=== PATIENT | male | born 1980 | race Caucasian/White ===

== ENCOUNTER 2017-10-12 21:44 | Emergency (ER) | payer OTHER ==
[2017-10-12 21:48] VITALS: BP 144/89; PULSE 73; TEMP 99; BMI 22.6
--- NOTE | 2017-10-12 22:24 | PDOC ---
History of Present Illness - General Chief Complaint: Cold Symptoms Stated Complaint: COUGH/COLD Time Seen by Provider: 10/12/17 21:45 - History of Present Illness Initial Comments: This otherwise healthy 37-year-old man presents with a 2 day history of nasal congestion, mild throat discomfort and nonproductive cough. He also has had subjective fever for the last 24 hours. Patient has been taking over-the- counter decongestant/antihistamine combination's without significant relief ( DayQuil/NyQuil). He denies high fever/productive cough/shortness of breath/ wheezing. He has not had gastrointestinal symptoms or rash. He has used over- the-counter oxymetazoline nasal spray with some relief. 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 Patient is a smoker (states he smokes 4-5 cigarettes per day) no other recreational drug use/daily alcohol use. No known ALLERGIES Past History - Past Medical History Allergies/Adverse Reactions: Allergies Allergy/AdvReac Type Severity Reaction Status Date / Time No Known Allergies Allergy Unverified 10/12/17 21:45 Home Medications: Ambulatory Orders Fluticasone Prop 0.05% Nasal [Flonase -] 1 - 2 spray NS BID #1 spray.pump COPD: No Other medical history: DENIES - Suicide/Smoking/Psychosocial Hx Smoking History: Current every day smoker Number of Cigarettes Smoked Daily: 7 Information on smoking cessation initiated: Yes 'Breaking Loose' booklet given: 10/12/17 Review of Systems - Review of Systems Able to Perform ROS?: Yes Comments:: 12 point review of systems is negative except for what is noted in the history of present illness *Physical Exam - Vital Signs Last Vital Signs Temp Pulse Resp BP Pulse Ox 99 F 73 16 144/89 100 10/12/17 21:46 10/12/17 21:46 10/12/17 21:46 10/12/17 21:46 10/12/17 21:46 - Physical Exam Comments: GENERAL: Adult male, alert and oriented 3, in no acute distress. Vital signs as noted HEAD: Normal with no signs of trauma. EYES: PERRLA, EOMI, sclera anicteric, conjunctiva clear. ENT: Ears normal, nares patent, oropharynx mildly erythematous without exudate or masses ; dry mucous membranes. NECK: Normal range of motion, supple ; mildly tender, moderately enlarged anterior cervical lymph nodes : No JVD LUNGS: Breath sounds equal, clear to auscultation bilaterally. No wheezes, and no crackles. HEART:Regular rate and rhythm, normal S1 and S2 without murmur, rub or gallop. ABDOMEN:.normal bowel sounds No guarding,tenderness or rebound.No masses No distention. EXTREMITIES: Normal range of motion, no edema. No clubbing or cyanosis. No erythema, or tenderness. NEUROLOGICAL: Cranial nerves II through XII grossly intact. Normal speech. No focal neurological deficits. MUSCULOSKELETAL: Back non-tender to palpation, no CVA tenderness SKIN: Warm, Dry, normal turgor, no rashes or lesions noted. Progress Note - Progress Note Progress Note: Clinical presentation most consistent with acute viral upper respiratory infection and acute mild bronchitis. Although the patient has had some relief with nasal oxymetazoline, is been cautioned that dependence and rebound can occur with this nasal spray. Flonase twice a day will be prescribed. Also the patient should drink plenty fluids and rest. [id number] medications for decongestion antihistamine can also be used as needed. *DC/Admit/Observation/Transfer Diagnosis at time of Disposition: Acute viral bronchitis, Viral upper respiratory infection - Discharge Dispostion Disposition: HOME Condition at time of disposition: Stable - Prescriptions Prescriptions: Fluticasone Prop 0.05% Nasal [Flonase -] 1 - 2 spray NS BID #1 spray.pump - Referrals - Patient Instructions Printed Discharge Instructions: DI for Viral Upper Respiratory Infection -- Adult Additional Instructions: Rest; drink plenty of fluids Advil cough and cold during the day as needed for symptoms TheraFlu at night as needed for symptoms Flonase spray in each nostril twice a day for the next week Return or see your doctor if you have high fever/severe cough/wheezing - Post Discharge Activity
== END 2017-10-12 22:44 | disposition home or self-care (01) ==
LOC: FER 21:44
DX: J06.9 Acute upper respiratory infection, unspecified (principal); J20.8 Acute bronchitis due to other specified organisms; B97.89 Other viral agents as the cause of diseases classified elsewhere; F17.210 Nicotine dependence, cigarettes, uncomplicated
CPT/HCPCS: 99282-25

== ENCOUNTER 2019-02-19 01:23 | Emergency (ER) | payer OTHER ==
[2019-02-19 02:20] VITALS: BP 153/98; PULSE 79; TEMP 97.9; BMI 26.2
--- NOTE | 2019-02-19 02:22 | PDOC ---
History of Present Illness - General Chief Complaint: Edema Stated Complaint: SWELLING TO FINGERS Time Seen by Provider: 02/19/19 02:15 History Source: Patient - History of Present Illness Initial Comments: 02/19/19 02:19 38 years old male c/o left 3rd digit swelling at the finger tip and pain. patientis noted to have swelling at the nail bed Past History - Past Medical History Allergies/Adverse Reactions: Allergies Allergy/AdvReac Type Severity Reaction Status Date / Time No Known Allergies Allergy Verified 02/19/19 02:20 Home Medications: Ambulatory Orders Fluticasone Prop 0.05% Nasal [Flonase -] 1 - 2 spray NS BID #1 spray.pump Cephalexin Monohydrate [Keflex -] 250 mg PO Q6H #28 capsule 02/19/19 COPD: No - Suicide/Smoking/Psychosocial Hx Smoking History: Current every day smoker Number of Cigarettes Smoked Daily: 7 'Breaking Loose' booklet given: 10/12/17 Review of Systems - Review of Systems Able to Perform ROS?: Yes Is the patient limited Tunisian proficient: No Constitutional: No: Symptoms Reported, See HPI, Chills, Diaphoresis, Fever, Loss of Appetite, Malaise, Night Sweats, Weakness, Weight Stable, Unintentional Wgt. Loss, Unexplained wgt Loss, Other Integumentary: Yes: Other (swelling to the nail bed/ finger) *Physical Exam - Physical Exam General Appearance: Yes: Appropriately Dressed Extremity: positive: Normal Capillary Refill, Other (left 3rd digit paronychia with erythema to the finger tip) Progress Note - Progress Note Progress Note: A: paronychia P: drained small amount of pus from cuticle. will treat with antibioitcs for cellulitis a the finger tip *DC/Admit/Observation/Transfer Diagnosis at time of Disposition: Paronychia of finger of left hand, Cellulitis of fingernail of left hand - Discharge Dispostion Condition at time of disposition: Fair - Prescriptions Prescriptions: Cephalexin Monohydrate [Keflex -] 250 mg PO Q6H #28 capsule - Referrals Referrals: Eduardo Roberts MD [Primary Care Provider] - 2 Days (for a wound check) - Patient Instructions Printed Discharge Instructions: DI for Wound Infection Additional Instructions: Keep dressing on overnight. Warm compresses 15-20 minutes at a time 3-4 times a day. Complete course of antibiotic therapy as prescribed Return to ED immediately if any signs of infection such as fever, increasing pain, swelling, streaking redness, or if symptoms worsen or any concerns. - Post Discharge Activity Forms/Work/School Notes: Back to Work
--- NOTE | 2019-02-19 02:32 | PDOC ---
*Physical Exam - Vital Signs Last Vital Signs Temp Pulse Resp BP Pulse Ox 97.9 F 79 16 153/98 98 02/19/19 01:23 02/19/19 01:23 02/19/19 01:23 02/19/19 01:23 02/19/19 01:23 Medical Decision Making - Medical Decision Making 02/19/19 02:32 Patient seen by the advanced practice provider under my direct supervision. Ancillary testing reviewed as necessary. I agree with plan as outlined by the advanced practice provider. *DC/Admit/Observation/Transfer Diagnosis at time of Disposition: Paronychia of finger of left hand, Cellulitis of fingernail of left hand - Discharge Dispostion Condition at time of disposition: Fair - Prescriptions Prescriptions: Cephalexin Monohydrate [Keflex -] 250 mg PO Q6H #28 capsule - Referrals Referrals: Eduardo Roberts MD [Primary Care Provider] - 2 Days (for a wound check) - Patient Instructions Printed Discharge Instructions: DI for Wound Infection Additional Instructions: Keep dressing on overnight. Warm compresses 15-20 minutes at a time 3-4 times a day. Complete course of antibiotic therapy as prescribed Return to ED immediately if any signs of infection such as fever, increasing pain, swelling, streaking redness, or if symptoms worsen or any concerns. - Post Discharge Activity Forms/Work/School Notes: Back to Work
== END 2019-02-19 02:59 | disposition home or self-care (01) ==
LOC: JER 01:23
PROC: 0J9K0ZZ Drainage of Left Hand Subcutaneous Tissue and Fascia, Open Approach (ICD-10-PCS; principal; 2019-02-19)
DX: L03.012 Cellulitis of left finger (principal)
CPT/HCPCS: 10060; 99281-25